=== PATIENT | male | born 1930 | race Caucasian/White ===

== ENCOUNTER 2017-08-10 05:33 | Observation (INO) | payer OTHER ==
[~2017-08-10] VITALS: Ht 175.3 cm; Wt 100.0 kg
[2017-08-10] VITALS (9 sets, daily range): BP systolic 131–194; BP diastolic 64–110; PULSE 73–86; RESP 18–20; TEMP 98.4–98.7; O2SAT 92–97
[~2017-08-10 05:33] MED LIST: BACT800T5 PO; DOXA1TAB36 PO; FAMO20TA2 PO; HYDR25TA5 PO; MULT1TAB85 PO; VITA10002 PO; VITA2000 PO; WARF-23 PO
[2017-08-10] MEDS ORDERED: CETI10 (05:51)
[2017-08-10] MEDS ORDERED: ONETAB22 PO (05:51)
--- NOTE | 2017-08-10 06:50 | RADRPT ---
EXAM DATE: 08/10/2017 6:36 AM EDT AGE/SEX: 87 years / Male INDICATIONS: Inflammation. CLINICAL DATA: This is the patient's initial encounter. Patient reports that signs and symptoms have been present for 1 day and indicates a pain score of 2/10. MEDICAL/SURGICAL HISTORY: Aneurysm, abdominal. Aortic valve insufficiency. . Right ankle. COMPARISON: No prior exams available for comparison. FINDINGS: AP, lateral and oblique views of the right foot were obtained and demonstrate 2 lag-type screws in th e medial malleolus. Ankle mortise is widened medially there is abnormal deformity and lucency involvi ng the distal lateral tibia. The patient appears status post talocalcaneal fusion with deformity. The re is no acute fracture. There is evidence of pes planus. Diffuse soft tissue swelling. CONCLUSION: 1. Remote postsurgical changes with lag-type screws and apparent talar calcaneal fusion. 2. Widening of the medial ankle mortise with apparent osteochondral defect involving the medial dist al tibia. 3. No acute fracture. 4. Diffuse soft tissue swelling. 5. Pes planus. Electronically signed by: Roverto Toscano MD 08/10/2017 6:49 AM EDT
[2017-08-10 06:53] LABS: AUTOMATED NEUTROPHIL # 6.3 TH/MM3 (1.8-7.7); BASOPHIL % 0.4 % (0.0-2.0); EOSINOPHIL # 0.1 TH/MM3 (0-0.4); EOSINOPHIL % 1.4 % (0.0-4.0); HEMATOCRIT 38.2 % (39.0-51.0); HEMOGLOBIN 12.8 GM/DL (13.0-17.0); LYMPHOCYTE # 0.4 TH/MM3 (1.0-4.8); MEAN CELL VOLUME 94.1 FL (80.0-100.0); MEAN CORPUSCULAR HEMOGLOBIN 31.7 PG (27.0-34.0); MEAN CORPUSCULAR HGB CONC 33.7 % (32.0-36.0); MEAN PLATELET VOLUME 8.1 FL (7.0-11.0); MONOCYTE # 0.7 TH/MM3 (0-0.9); NEUT % 84.2 % (16.0-70.0); PLATELET COUNT 275 TH/MM3 (150-450); RED BLOOD COUNT 4.06 MIL/MM3 (4.50-5.90); RED CELL DISTRIBUTION WIDTH 15.4 % (11.6-17.2); WHITE BLOOD COUNT 7.5 TH/MM3 (4.0-11.0)
--- NOTE | 2017-08-10 07:01 | PD ---
HPI Chief Complaint: Skin Problem Time Seen by Provider: 05:52 Travel History International Travel<30 days: No Contact w/Intl Traveler<30days: No Traveled to known affect area: No History of Present Illness HPI This is an 87-year-old male who presents to the emergency department with 2 days of swelling involving his right lower leg, constant, moderate severity, worsening. He has been on his feet a fair amount because his children are visiting. He denies any fevers or chills. He does have a history of surgery on the right ankle 4 years ago. 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 PFSH Past Medical History Cancer: Yes (SKIN ) Hypertension: Yes Past Surgical History Appendectomy: Yes Cardiac Surgery: Yes (VALVE REPLACEMENT ) Genitourinary Surgery: Yes (TURP ) Other Surgery: Yes (POLYP REMOVED FROM NOSE , SKIN CANCER REMOVED ) Social History Alcohol Use: No Tobacco Use: No Substance Use: No Allergies-Medications (Allergen,Severity, Reaction): Coded Allergies: bacitracin (Verified Allergy, Unknown, 08/10/17) neomycin (Verified Allergy, Unknown, 08/10/17) Reported Meds & Prescriptions Reported Meds & Active Scripts Active Warfarin 5 Mg Tab 5 Mg PO DAILY Hydrochlorothiazide 25 Mg Tab 25 Mg PO DAILY Reported Cetirizine (Cetirizine HCl) 10 Mg Tab 10 Mg DAILY One Daily-Minerals (Multiple Vitamins W/ Minerals) 1 Tab 1 Tab PO DAILY Famotidine 20 Mg Tab 20 Mg PO DAILY PRN Vitamin D3 (Cholecalciferol) 2,000 Unit Cap 2,000 Units PO DAILY Vitamin B-12 (Cyanocobalamin) 1,000 Mcg Tab 1,000 Mcg PO DAILY Review of Systems Except as stated in HPI: all other systems reviewed are Neg Physical Exam Narrative GENERAL:Well appearing, no acute distress SKIN: Erythema and warmth over the distal right lower extremity adjacent to the patient's surgical scars. HEAD: Atraumatic. Normocephalic. EYES: Pupils equal and round. No injection or drainage. ENT: Moist mucous membranes NECK: Trachea midline. CARDIOVASCULAR: Regular rate and rhythm. 3 out of 6 systolic murmur appreciated over the right upper sternal border. RESPIRATORY: Clear to auscultation. Breath sounds equal bilaterally. GASTROINTESTINAL: Abdomen soft, non-tender, nondistended. MUSCULOSKELETAL: No obvious deformities. NEUROLOGICAL: Awake and alert. No obvious cranial nerve deficits. Moving all extremities. PSYCHIATRIC: Appropriate mood and affect; insight and judgment normal. Data Data Last Documented VS Vital Signs Date Time Temp Pulse Resp B/P (MAP) Pulse Ox O2 Delivery O2 Flow Rate FiO2 08/10/17 05:55 80 18 169/103 (125) 97 Room Air Orders Orders Complete Blood Count With Diff (08/10/17 06:14) Comprehensive Metabolic Panel (08/10/17 06:14) Westergren Sedimentation Rate (08/10/17 06:14) C-Reactive Protein (Crp) (08/10/17 06:14) Ankle, Complete ([id number]) (08/10/17 ) ^ Insert Iv (08/10/17 06:14) Calcium, Ionized (08/10/17 06:17) Labs Laboratory Tests Test 08/10/17 06:14 White Blood Count 7.5 TH/MM3 Red Blood Count 4.06 MIL/MM3 Hemoglobin 12.8 GM/DL Hematocrit 38.2 % Mean Corpuscular Volume 94.1 FL Mean Corpuscular Hemoglobin 31.7 PG Mean Corpuscular Hemoglobin Concent 33.7 % Red Cell Distribution Width 15.4 % Platelet Count 275 TH/MM3 Mean Platelet Volume 8.1 FL Neutrophils (%) (Auto) 84.2 % Lymphocytes (%) (Auto) 5.0 % Monocytes (%) (Auto) 9.0 % Eosinophils (%) (Auto) 1.4 % Basophils (%) (Auto) 0.4 % Neutrophils # (Auto) 6.3 TH/MM3 Lymphocytes # (Auto) 0.4 TH/MM3 Monocytes # (Auto) 0.7 TH/MM3 Eosinophils # (Auto) 0.1 TH/MM3 Basophils # (Auto) 0.0 TH/MM3 CBC Comment DIFF FINAL Differential Comment MDM Medical Decision Making Medical Screen Exam Complete: Yes Emergency Medical Condition: Yes Interpretation(s) No leukocytosis Differential Diagnosis Cellulitis, abscess, infected hardware Narrative Course This is an 87-year-old male who presents to the emergency department with cellulitis of wrist distal right lower extremity. The cellulitis is an area adjacent to prior orthopedic surgery. He was placed in a monitor and an IV was established. He is afebrile and well-appearing. Plan for labs and inflammatory markers. Based on the results of this we will decide whether the patient needs observation for orthopedic consultation or whether he can follow- up as an outpatient. 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 Melodie Arce MD Aug 10, 2017 07:01
[2017-08-10 07:08] LABS: ALT (GPT) 34 U/L (12-78); AST (GOT) 36 U/L (15-37); BICARBONATE 27.2 MEQ/L (21.0-32.0); BLOOD UREA NITROGEN 17 MG/DL (7-18); C-REACTIVE PROTEIN 0.38 MG/DL (0.00-0.30); CHLORIDE 107 MEQ/L (98-107); CREATININE 0.93 MG/DL (0.60-1.30); GLOMERULAR FILTRATION RATE 77 ML/MIN (>89); GLUCOSE,RANDOM 81 MG/DL (74-106); SODIUM (NA) 140 MEQ/L (136-145)
[2017-08-10 07:11] LABS: ALKALINE PHOSPHATASE 89 U/L (45-117); TOTAL BILIRUBIN ADULT 1.4 MG/DL (0.2-1.0)
[2017-08-10] MEDS ORDERED: PIPERACIL-TAZO 4.5 GM PREMIX 100 ML IV STA (09:22)
--- NOTE | 2017-08-10 10:23 | HHI.HP ---
[facility] Service Family Medicine Primary Care Physician Barron Sandoval MD Admission Diagnosis Leg cellulitis Diagnoses: International Travel<30 Days: No Contact w/Intl Traveler<30days: No Known Affected Area: No History of Present Illness Dr. 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 He states that 2 days ago he states that there were "a couple of 2 inch spots or redness that quickly increased to surround his leg." Over the last 2 days the ankle has gotten more edematous, erythematous, and started to have pain. Pain is a sharp pain that is up to 4/10 that is diffuse around his ankle. His only other associated symptom over this time is some mild nausea. He denies any drainage, trauma, bleeding, fevers/chills, V/D, or lethargy. He does endorse being on his feet more than normal due to a recent visit from his grandchildren. He endorses a history of reflex sympathetic dystropy that causes him 2+ nonpitting edema, stiffness, and intermittent pain. (Julio Cesar Emmanuel MD R2) Review of Systems Constitutional: COMPLAINS OF: Dizziness, DENIES: Fever, Chills Eyes: DENIES: Blurred vision, Double Vision Ears, nose, mouth, throat: COMPLAINS OF: Hearing loss (Since radiation treatment years ago in his R ear), DENIES: Throat pain, Running Nose Respiratory: COMPLAINS OF: Cough (Since radiation treatment years ago), Sputum production (Since radiation treatment years ago), DENIES: Shortness of breath Cardiovascular: COMPLAINS OF: Lower Extremity Edema, DENIES: Chest pain Gastrointestinal: COMPLAINS OF: Nausea, DENIES: Abdominal pain, Diarrhea, Vomiting Genitourinary: DENIES: Hematuria, Dysuria Musculoskeletal: COMPLAINS OF: Joint pain, Muscle aches Integumentary: DENIES: Rash Hematologic/lymphatic: COMPLAINS OF: Lymphadenopathy Immunologic/allergic: DENIES: Urticaria Neurologic: DENIES: Headache Psychiatric: DENIES: Mood changes (Julio Cesar Emmanuel MD R2) Past Family Social History Past Medical History Hypertension Abdominal aortic aneurysm last seen early 2017, recheck scheduled in late 2018 (currently 6.0cm, patient declining surgery) 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 Diaz, Cardiology: Dr. Wood. Past Surgical History Nasal polypectomy 2001 TURP in 2003. Patient reports a continued mild post void residual of 100 mL. 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 Right ankle fracture requiring open reduction internal fixation in 2013; complicated by post injury reflex sympathetic dystrophy (Julio Cesar Emmanuel MD R2) Allergies: Coded Allergies: bacitracin (Verified Allergy, Unknown, 08/10/17) neomycin (Verified Allergy, Unknown, 08/10/17) Family History Father: at age 48 of a gunshot accident. 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 HEENT: Atraumatic, normocephalic with extraocular motions intact. PERRLA. Oropharynx clear without erythema or exudate. No rhinorrhea. No palpable LAD, JVD, or thyroid abnormality. Surgical wounds on the scalp as well as ear. CARDIOVASCULAR: Irregular rate and rhythm without obvious MGR. 2+ pulses in all 4 extremities. RESPIRATORY: Clear to auscultation bilaterally with no CRW. No increased work of breathing. GASTROINTESTINAL: Abdomen soft, non-tender, nondistended with positive bowel sounds. No masses appreciated. MUSCULOSKELETAL: No cyanosis. No left calf tenderness. RLE: Patient with loss of sensation along the right toes which is baseline per his report. Otherwise sensation, range of motion, and strength intact throughout the right lower extremity. DP/PT pulses unable to be palpated due to edema. 2+ popliteal pulse palpated. No lymphadenopathy appreciated throughout the right lower extremity. NEURO/PSYCH: Afocal. Awake, alert, and oriented x3. Normal speech and judgement. SKIN: Warm and dry. -Right lower extremity Measurements: 38 x 26 cm area of hyperemic skin surrounding the right ankle and lower calf. Boarders have been outlined with marking pen. Edematous, erythematous, warm to the touch Not well demarcated (no obvious boundaries like erysipelas) Indurated without fluctuance or crepitus Skin is tight/cracked appearing with one small healing eschar on the anterior singer. No exudates. No foul smell. No necrotic appearing tissue. No skin sloughing. No ulcers. Sensation in overlying skin intact. No loss of motor function distally. Pulses unable to be palpated at the PT and DP due to edema of the right lower extremity. No palpable popliteal or inguinal lymph nodes appreciated. Laboratory Laboratory Tests Test 08/10/17 06:14 White Blood Count 7.5 Red Blood Count 4.06 Hemoglobin 12.8 Hematocrit 38.2 Mean Corpuscular Volume 94.1 Mean Corpuscular Hemoglobin 31.7 Mean Corpuscular Hemoglobin Concent 33.7 Red Cell Distribution Width 15.4 Platelet Count 275 Mean Platelet Volume 8.1 Neutrophils (%) (Auto) 84.2 Lymphocytes (%) (Auto) 5.0 Monocytes (%) (Auto) 9.0 Eosinophils (%) (Auto) 1.4 Basophils (%) (Auto) 0.4 Neutrophils # (Auto) 6.3 Lymphocytes # (Auto) 0.4 Monocytes # (Auto) 0.7 Eosinophils # (Auto) 0.1 Basophils # (Auto) 0.0 CBC Comment DIFF FINAL Differential Comment Erythrocyte Sedimentation Rate 24 Blood Urea Nitrogen 17 Creatinine 0.93 Random Glucose 81 Total Protein 7.0 Albumin 4.0 Calcium Level 9.0 Alkaline Phosphatase 89 Aspartate Amino Transf (AST/SGOT) 36 Alanine Aminotransferase (ALT/SGPT) 34 Total Bilirubin 1.4 Sodium Level 140 Potassium Level 4.1 Chloride Level 107 Carbon Dioxide Level 27.2 Anion Gap 6 Estimat Glomerular Filtration Rate 77 C-Reactive Protein 0.38 Date/Time Source Procedure Growth Status 08/10/17 09:30 Blood Peripheral Aerobic Blood Culture Pending Received 08/10/17 09:30 Blood Peripheral Anaerobic Blood Culture Pending Received (Julio Cesar Emmanuel MD R2) Result Diagram: 08/10/17 0614 08/10/17 0614 Imaging Last 72 hours Impressions Ankle X-Ray 08/10/17 0000 Signed Impressions: CONCLUSION: 1. Remote postsurgical changes with lag-type screws and apparent talar calcane al fusion. 2. Widening of the medial ankle mortise with apparent osteochondral defect inv olving the medial distal tibia. 3. No acute fracture. 4. Diffuse soft tissue swelling. 5. Pes planus. (Julio Cesar Emmanuel MD R2) Caprini VTE Risk Assessment Caprini VTE Risk Assessment: Mod/High Risk (score >= 2) Caprini Risk Assessment Model Point Value = 1 Point Value = 2 Point Value = 3 Point Value = 5 Age 41-60 Minor surgery BMI > 25 kg/m2 Swollen legs Varicose veins or History of unexplained or recurrent spontaneous Oral contraceptives or hormone replacement Sepsis (< 1 month) Serious lung disease, including pneumonia (< 1 month) Abnormal pulmonary function Acute myocardial infarction Congestive heart failure (< 1 month) History of inflammatory bowel disease Medical patient at bed rest Age 61-74 Arthroscopic surgery Major open surgery (> 45 min) Laparoscopic surgery (> 45 min) Malignancy Confined to bed (> 72 hours) Immobilizing plaster cast Central venous access Age >= 75 History of VTE Family history of VTE Factor V Leiden Prothrombin [id number] Lupus anticoagulant Anticardiolipin antibodies Elevated serum homocysteine Heparin-induced thrombocytopenia Other congenital or acquired thrombophilia Stroke (< 1 month) Elective arthroplasty Hip, pelvis, or leg fracture Acute spinal cord injury (< 1 month) Prophylaxis Regimen Total Risk Factor Score Risk Level Prophylaxis Regimen 0-1 Low Early ambulation 2 Moderate Order ONE of the following: *Sequential Compression Device (SCD) *Heparin 5000 units SQ BID 3-4 Higher Order ONE of the following medications: *Heparin 5000 units SQ TID *Enoxaparin/Lovenox 40 mg SQ daily (WT < 150 kg, CrCl > 30 mL/min) *Enoxaparin/Lovenox 30 mg SQ daily (WT < 150 kg, CrCl > 10-29 mL/min) *Enoxaparin/Lovenox 30 mg SQ BID (WT < 150 kg, CrCl > 30 mL/min) AND/OR *Sequential Compression Device (SCD) 5 or more Highest Order ONE of the following medications: *Heparin 5000 units SQ TID (Preferred with Epidurals) *Enoxaparin/Lovenox 40 mg SQ daily (WT < 150 kg, CrCl > 30 mL/min) *Enoxaparin/Lovenox 30 mg SQ daily (WT < 150 kg, CrCl > 10-29 mL/min) *Enoxaparin/Lovenox 30 mg SQ BID (WT < 150 kg, CrCl > 30 mL/min) AND *Sequential Compression Device (SCD) (Julio Cesar Emmanuel MD R2) Assessment and Plan Assessment and Plan 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 Code Status DNR - Documentation per patient is at [facility] Discussed Condition With Dr. Samayoa, ED physician (Julio Cesar Emmanuel MD R2) Attending Attestation PATIENT SEEN AND EXAMINED. PRESENTS WITH CELLULITIS OF HIS RIGHT LOWER EXTREMITY; AREA WHERE HE HAS CHRONIC STASIS EDEMA. NOTES THAT HE BEGAN FEELING BADLY ABOUT 48 HOURS AGA AND NOTED THE ONCET OF THE REDNESS/CELLULITIS YESTERDAY. NO PREVIOUS SIMILAR EPISODE. UNCERTAIN IF HE HAD CHILLS OR FEVER. PREVIOUS FX OF HIS RIGHT ANKLE WITH DEPENDENT EDEMA CHRONICALLY SINCE INJURY. HE HAS ATRIAL FIBRILLATION FOR WHICH HE IN ON WARFARIN. ALSO HAS A KNOWN AAA FOLLOWED BY DR. DIAZ. THIS CASE WAS DISCUSSED WITH THE RESIDENT PHYSICIAN. I HAVE REVIEWED THE RECORD AND AGREE WITH THE ABOVE NOTE AND PLAN OF CARE WAS DISCUSSED. I HAVE AUTHORIZED THE ORDER FOR PLACEMENT IN OUT-PATIENT OBSERVATION STATUS. (Barron Sandoval MD) Problem List: (1) Cellulitis of right lower extremity ICD Codes: L03.115 - Cellulitis of right lower limb Status: Acute Plan: Physical exam consistent with nonpurulent cellulitis as there is no drainage or pus. Thus, MSSA and strep are most likely. MRSA unlikely. However with orthopedic devices in the right lower extremity, per up-to-date will cover for MRSA infection with vancomycin. -Patient currently does not meet sepsis criteria as there is no leukocytosis, patient is afebrile, no tachycardia, and is without respiratory distress. - R Ankle Xray:1. Remote postsurgical changes with lag-type screws and apparent talar calcaneal fusion. Widening of the medial ankle mortise with apparent osteochondral defect involving the medial distal tibia. No acute fracture. Diffuse soft tissue swelling. Pes planus. -WBC 7.5, neutrophil percent 84.2. Afebrile. -ESR 24 -CRP 0.38 -Patient hypertensive (missed his morning HCTZ) and pt. not tachycardic. -Wound cultures ordered if area begins to drain. -Vancomycin with pharmacy consulted for dosing. -Pain control with Toradol 15mg every 6 hours IV to aid in inflammation reduction and Oxycodone 5 mg PO Q4H PRN for breakthrough pain. -Consider ID/Orthopedic consult in the near future if pt. does not ct. to improve. -Elevate affected area. K thermia pad ordered. -Expect cellulitis to worsen in the first 24 hrs after abx due to toxin release and bacterial lysis. (2) AAA (abdominal aortic aneurysm) ICD Codes: I71.4 - Abdominal aortic aneurysm, without rupture Status: Chronic Plan: Patient with history of AAA measuring up to 6 cm per patient report. Patient has declined surgery in the past is currently managed as an outpatient by Dr. Diaz. He states that he had an appointment for evaluation earlier this year, and is rescheduled for his next appointment this fall. Due to aneurysm, plan to have tight blood pressure control. Medications: -Continue home hydrochlorothiazide -Carvedilol 3.125 mg twice daily as needed for blood pressure greater than 130/ 90 -Plan to adjust blood pressure medications as needed to control blood pressure (3) Constipation ICD Codes: K59.00 - Constipation, unspecified Status: Acute Plan: Patient reports constipation for the last 24+ hours with mild nausea. Patient states he uses [id number] laxative/fiber to assist with constipation at home as it is long-standing. Medications: -Constipation protocol in place (4) Hypertension ICD Codes: I10 - Essential (primary) hypertension Status: Chronic Plan: Patient with history of hypertension. Patient reports missing home hydrochlorothiazide morning dose on 08/10 at admission. Medications: -Continue home hydrochlorothiazide (5) GERD (gastroesophageal reflux disease) ICD Codes: K21.9 - Gastro-esophageal reflux disease without esophagitis Status: Chronic Plan: Patient with history of GERD Medications: -Continue home famotidine as needed for indigestion (6) Atrial fibrillation ICD Codes: I48.91 - Unspecified atrial fibrillation Status: Chronic Plan: Patient with history of atrial fibrillation currently anticoagulated with Coumadin. Patient reports currently not requiring rate control. He is managed by Dr. Wood. -PT/INR/PTT: Ordered Medications: -Continue Coumadin 5 mg daily (7) BPH (benign prostatic hyperplasia) ICD Codes: N40.0 - Benign prostatic hyperplasia without lower urinary tract symptoms Status: Chronic Plan: Patient with history of BPH Medications: -Continue home Doxazosin (8) Nutrition, metabolism, and development symptoms ICD Codes: R63.8 - Other symptoms and signs concerning food and fluid intake Status: Acute Plan: -Fluids: Normal saline at 100 mL/h -Diet: Regular as tolerated -Electrolytes: Within normal limits, continue to monitor -Prophylaxis: Cetirizine daily for allergies, constipation protocol in place, DuoNeb's as needed for shortness of breath, famotidine as needed for indigestion , Tessalon Perles as needed for cough, Toradol scheduled for pain with [place] as needed for breakthrough pain -PT ordered -Incentive spirometry (9) DVT prophylaxis Status: Acute Plan: -SCDs Medications: -Continue anticoagulations with Coumadin (Julio Cesar Emmanuel MD R2) Problem Qualifiers (1) AAA (abdominal aortic aneurysm): Qualified Codes: I71.4 - Abdominal aortic aneurysm, without rupture (2) Constipation: Qualified Codes: K59.00 - Constipation, unspecified (3) Hypertension: Qualified Codes: I10 - Essential (primary) hypertension (4) GERD (gastroesophageal reflux disease): Qualified Codes: K21.9 - Gastro-esophageal reflux disease without esophagitis (5) Atrial fibrillation: Qualified Codes: I48.2 - Chronic atrial fibrillation (6) BPH (benign prostatic hyperplasia): Qualified Codes: N40.0 - Benign prostatic hyperplasia without lower urinary tract symptoms Julio Cesar Emmanuel MD R2 Aug 10, 2017 10:23 Barron Sandoval MD Aug 10, 2017 18:23
[2017-08-10] MEDS ORDERED: FAMOTIDINE 20 MG TAB PO PRN (10:45)
[2017-08-10] MEDS ORDERED: ACETAMINOPHEN 500 MG CPLT PO PRN (11:15)
[2017-08-10] MEDS ORDERED: Vancomycin Consult Pharmacy 1 EA OTHER SCH (11:15)
[2017-08-10] MEDS ORDERED: ACETAMINOPHEN/HYDROcodone 325 MG/5 MG TAB PO PRN (11:15)
[2017-08-10] MEDS ORDERED: SODIUM CHLORIDE 0.9% FLUSH 10 ML FLUSH IV FLUSH PRN (11:15)
[2017-08-10] MEDS ORDERED: VANCOMYCIN INJ 1,000 MG in SODIUM CHLOR 0.9% 250 ML INJ 250 ML IV SCH (11:15)
[2017-08-10] MEDS ORDERED: MAGNESIUM HYDROXIDE SUSP 30 ML CUP PO PRN (11:30)
[2017-08-10] MEDS ORDERED: SENNOSIDES 8.6 MG TAB PO PRN (11:30)
[2017-08-10] MEDS ORDERED: BENZONATATE 100 MG CAP PO PRN (11:30)
[2017-08-10] MEDS ORDERED: RESP: ALBUTEROL 2.5 MG/IPRATROPIUM 0.5 MG NEB (PRN) NEB (11:30)
[2017-08-10] MEDS ORDERED: CARVEDILOL 3.125 MG TAB PO PRN (11:30)
[2017-08-10] MEDS ORDERED: BISACODYL 10 MG SUPP RECTAL PRN (11:30)
[2017-08-10] MEDS ORDERED: cloNIDine HCL 0.1 MG TAB PO PRN (12:45)
[2017-08-10] MEDS: HYDROCHLOROTHIAZIDE 25 MG TAB PO SCH (12:57)
[2017-08-10] MEDS: KETOROLAC TROMETHAMINE 30 MG/ML (IVP) VIAL IV PUSH SCH ×2 (12:57→18:22)
[2017-08-10] MEDS: DOCUSATE SODIUM 50 MG/SENNA 8.6 MG TAB PO SCH ×2 (13:11→22:29)
[2017-08-10] MEDS: SODIUM CHLOR 0.9% 1000 ML INJ 1,000 ML IV SCH (14:08)
[2017-08-10] MEDS: VANCOMYCIN INJ 1,500 MG in SODIUM CHLORID 0.9% 500 ML INJ 500 ML IV SCH (14:10)
[2017-08-10] MEDS: DOXAZOSIN MESYLATE 1 MG TAB PO SCH (14:13)
[2017-08-10 16:36] LABS: INTERNATIONAL NORMALIZED RATIO 1.7 RATIO; PROTHROMBIN TIME - PATIENT 17.5 SEC (9.8-11.6)
--- NOTE | 2017-08-10 16:41 | HHI.PR ---
Addendum to Inpatient Note Addendum Reason: Additional Documentation Additional Information Called to bedside because patient had questions about code status. On discussion , patient does not want interventions including codes ONLY IF AORTA RUPTURES. Otherwise, he wants CPR, shocks, meds, and intubation if needed on immediate basis. Once known etiology is aortic rupture, he would want acute interventions stopped. Updated code status in chart to full code, reminded patient to let nurse know at any point if he decides he would rather be DNR or alternate code. Justen San MD R2 Aug 10, 2017 4:41 pm
--- NOTE | 2017-08-10 19:02 | HHI.PR ---
Addendum to Inpatient Note Addendum Reason: Additional Documentation Additional Information S: Medical team senior solutions architect alerted by nursing staff of possible mental status change. Per the report patient appeared "loopy" and was not oriented to place or time per her report. Nursing staff performed NIH stroke scale scored as a 2 ( 1 for drowsiness and 1 for correct orientation questions). Medical team to evaluate patient. Upon entering the room patient is eating dinner and watching television in no acute distress. Patient states that he believes the nursing staff "got into fuss" after waking him up from a "deep sleep." He agreed that he might have seemed "out of it" but believes he is "out of his fog." O: GENERAL: Well-nourished, well-developed patient. No acute distress. SKIN: Warm and dry. No rash. EYES: No scleral icterus. No injection or drainage. PERRLA. EOMI. HENT: Normocephalic. Atraumatic. MMM. NECK: No visible JVD or lymphadenopathy. CARDIOVASCULAR: Warm and well perfused. RESPIRATORY: Normal respiratory effort. GASTROINTESTINAL: Abdomen nondistended. MUSCULOSKELETAL: Strength grossly WNL. NEUROLOGICAL: AAO 3. Speech- Fluent. No dysarthria or dysphasia. Good focus, attention, and comprehension. Cranial nerves- 2 through 12 intact. Motor/sensory/reflexes- Face- No facial droop. No tongue deviation. RUE- 5/5 strength in all musc groups, sensation intact. Reflexes 2+. LUE- 5/5 strength in all musc groups, sensation intact. Reflexes 2+. RLE- 5/5 strength in all musc groups, sensation intact. Reflexes 2+. LLE- 5/5 strength in all musc groups, sensation intact. Reflexes 2+. Pronator drift test-negative Babinski-negative Rapid alternating movements-negative No hemispace neglect. Able to repeat phrases: 3/3 Shot term memory intact. Able to perform heel to singer. 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 Medical team called to evaluate for possible AMS. 1. Possible AMS -Neuro exam unchanged as above -Patient completely oriented 3 -Neuro checks ordered every 4 hours -Nursing staff to contact MD with any acute status changes at this time -Continue with medical plan Julio Cesar Emmanuel MD R2 Aug 10, 2017 19:02
[2017-08-10] MEDS ORDERED: WARFARIN SOD 5 MG TAB PO SCH (21:00)
[2017-08-10] MEDS: SODIUM CHLORIDE 0.9% FLUSH 10 ML FLUSH IV FLUSH SCH (21:00)
[2017-08-11] MEDS: SODIUM CHLOR 0.9% 1000 ML INJ 1,000 ML IV SCH ×2 (00:26→07:56)
[2017-08-11] MEDS: KETOROLAC TROMETHAMINE 30 MG/ML (IVP) VIAL IV PUSH SCH ×3 (00:26→11:56)
[2017-08-11 00:30] VITALS: BP 120/56; PULSE 81; RESP 18; TEMP 98.5; O2SAT 93
[2017-08-11 04:35] VITALS: BP 143/78; PULSE 83; RESP 19; TEMP 97.5; O2SAT 95
[2017-08-11 07:00] VITALS: BP 119/70; PULSE 58; RESP 17; TEMP 97.8; O2SAT 94
[2017-08-11 07:37] VITALS: O2SAT 94
[2017-08-11] MEDS: DOCUSATE SODIUM 50 MG/SENNA 8.6 MG TAB PO SCH (07:55)
[2017-08-11] MEDS: HYDROCHLOROTHIAZIDE 25 MG TAB PO SCH (07:56)
[2017-08-11] MEDS: SODIUM CHLORIDE 0.9% FLUSH 10 ML FLUSH IV FLUSH SCH (07:56)
[2017-08-11] MEDS: DOXAZOSIN MESYLATE 1 MG TAB PO SCH (07:59)
[2017-08-11 08:20] LABS: AUTOMATED NEUTROPHIL # 8.3 TH/MM3 (1.8-7.7); BASOPHIL # 0.1 TH/MM3 (0-0.2); BASOPHIL % 0.5 % (0.0-2.0); EOSINOPHIL % 0.4 % (0.0-4.0); HEMATOCRIT 36.7 % (39.0-51.0); HEMOGLOBIN 12.4 GM/DL (13.0-17.0); LYMPH % 4.3 % (9.0-44.0); LYMPHOCYTE # 0.4 TH/MM3 (1.0-4.8); MEAN CELL VOLUME 94.7 FL (80.0-100.0); MEAN CORPUSCULAR HEMOGLOBIN 32.1 PG (27.0-34.0); MEAN CORPUSCULAR HGB CONC 33.8 % (32.0-36.0); MEAN PLATELET VOLUME 8.4 FL (7.0-11.0); MONO % 10.4 % (0.0-8.0); NEUT % 84.4 % (16.0-70.0); PLATELET COUNT 255 TH/MM3 (150-450); RED BLOOD COUNT 3.87 MIL/MM3 (4.50-5.90); RED CELL DISTRIBUTION WIDTH 15.2 % (11.6-17.2); WHITE BLOOD COUNT 9.8 TH/MM3 (4.0-11.0)
[2017-08-11 08:50] LABS: BICARBONATE 23.8 MEQ/L (21.0-32.0); CALCIUM 8.8 MG/DL (8.5-10.1)
[2017-08-11] MEDS ORDERED: CHOLECALCIFEROL (VIT D3) 1000 UNIT TAB PO SCH (09:00)
[2017-08-11] MEDS ORDERED: CYANOCOBALAMIN 1,000 MCG TAB PO SCH (09:00)
[2017-08-11] MEDS ORDERED: MULTIVITAMINS/MINERALS THERAPEUTIC TAB PO SCH (09:00)
[2017-08-11] MEDS ORDERED: CETIRIZINE HCL 10 MG TAB PO SCH (09:00)
[2017-08-11 10:41] VITALS: BP 109/63; PULSE 66; RESP 18; TEMP 97.6; O2SAT 66
[2017-08-11] MEDS ORDERED: TAMS5CAP PO (13:24)
[2017-08-11] MEDS ORDERED: CEPH-460 PO (13:24)
[2017-08-11] MEDS ORDERED: CARV3.12 PO (13:24)
--- NOTE | 2017-08-11 13:25 | HHI.DCPOC ---
Discharge Care Plan Diagnosis: (1) Cellulitis of right lower extremity Goals to Promote Your Health * To prevent worsening of your condition and complications * To maintain your health at the optimal level Directions to Meet Your Goals Take your medications as prescribed Follow your dietary instruction Follow activity as directed Keep your appointments as scheduled Take your immunizations and boosters as scheduled If your symptoms worsen call your PCP, if no PCP go to Urgent Care Center or Emergency Room Smoking is Dangerous to Your Health. Avoid second hand smoke Call the 24-hour hour crisis hotline for domestic abuse at Betsy Cobos MD R1 Aug 11, 2017 13:25
[2017-08-11] MEDS: VANCOMYCIN INJ 1,500 MG in SODIUM CHLORID 0.9% 500 ML INJ 500 ML IV SCH (13:28)
--- NOTE | 2017-08-11 13:45 | HHI.FPPN ---
Subjective Remarks Vitals stable. No problems or complaints. Patient states that he is feeling good today, ready to go home. (Betsy Cobos MD R1) Objective Vitals Vital Signs Date Time Temp Pulse Resp B/P (MAP) Pulse Ox O2 Delivery O2 Flow Rate FiO2 08/11/17 10:41 97.6 66 18 109/63 (78) 66 08/11/17 07:37 94 21 08/11/17 07:00 97.8 58 17 119/70 (86) 94 08/11/17 04:35 97.5 83 19 143/78 (99) 95 08/11/17 01:26 18 08/11/17 00:30 98.5 81 18 120/56 (77) 93 08/10/17 20:38 98.7 73 19 131/64 (86) 92 08/10/17 19:25 93 08/10/17 17:00 98.7 82 18 148/80 (102) 94 08/10/17 13:59 96 21 08/10/17 13:55 98.4 86 20 163/97 (119) 96 I/O 08/10/17 08/10/17 08/10/17 08/11/17 08/11/17 08/11/17 07:00 15:00 23:00 07:00 15:00 23:00 Intake Total 100 ml 2640 ml Output Total 800 ml Balance 100 ml 1840 ml Intake Oral 440 ml IV Total 100 ml 2200 ml Output Urine Total 800 ml # Voids 3 (Betsy Cobos MD R1) Result Diagram: 08/11/17 0723 08/11/17 0723 Objective Remarks O. CONSTITUTIONAL/GEN: in NAD. EYES: conjunctiva normal, PERRLA, EOMI. ENT: Mouth and pharynx normal. LUNGS: clear A-P, respiratory effort is normal. CARDIOVASCULAR: RR without murmur or gallop. No significant edema. GI/ABD: soft without masses, without organomegaly. NEURO: No focal deficits. SKIN: Negative demarcation at the right lower extremity that previously circumscribed area of redness/cellulitis. Area of redness has decreased in size. Leg is still swollen, but not too much swollen more swollen than the other leg. No pain/tenderness. +Pitting edema with some warmth. HEME/LYMPH: no bruising, petechia or significant adenopathy MUSC: back is normal in appearance. Extremities are normal in appearance. PSYCH/MENTAL STATUS: Alert and oriented x 3. 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 Improvement noted with antibiotic treatment. Discharge Planning Patient states that he feels much better today. Plan is to go home after dose of Vanco at 1400. Will continue antibiotic treatment with p.o. antibiotics outpatient. Will stop Cardura, initiate Flomax, and carvedilol twice daily. (Betsy Cobos MD R1) Attending Attestation Patient seen and examined. Non-purulent cellulitis of RLE is improving. B/p improved with carvedilol and no significant bradycardia. Beta bhupinder therapy for hypertension would be preferred in view of AAA. Does get benefit from alpha bhupinder regarding BPH. Will stop Cardura and substitute Flomax with continuation of carvedilol for HTN. Case reviewed and discussed with the resident team. Agree with plan of care as discussed with me and documented in the resident note. (Barron Sandoval MD) Problem List: (1) Cellulitis of right lower extremity ICD Codes: L03.115 - Cellulitis of right lower limb Status: Acute Plan: Improved. Discharge today after second dose of Vanco. Keflex 500 4 times daily for 7 days If infection worsens at any point, may start Bactrim. (2) AAA (abdominal aortic aneurysm) ICD Codes: I71.4 - Abdominal aortic aneurysm, without rupture Status: Chronic Plan: Patient with history of AAA measuring up to 6 cm per patient report. Patient has declined surgery in the past is currently managed as an outpatient by Dr. Peraza. He states that he had an appointment for evaluation earlier this year, and is rescheduled for his next appointment this fall. Due to aneurysm, plan to have tight blood pressure control. Medications: Stop Cardura. Initiate Flomax 0.4 mg at bedtime. Carvedilol 3.125 mg twice daily (3) Hypertension ICD Codes: I10 - Essential (primary) hypertension Status: Chronic Plan: Continue hydrochlorothiazide. Start carvedilol 3.125 mg p.o. twice daily for blood pressure control. (4) Constipation ICD Codes: K59.00 - Constipation, unspecified Status: Acute Plan: Continue home treatment regimen (5) GERD (gastroesophageal reflux disease) ICD Codes: K21.9 - Gastro-esophageal reflux disease without esophagitis Status: Chronic Plan: Patient with history of GERD Medications: -Continue home famotidine as needed for indigestion (6) Atrial fibrillation ICD Codes: I48.91 - Unspecified atrial fibrillation Status: Chronic Plan: Patient with history of atrial fibrillation currently anticoagulated with Coumadin. Patient reports currently not requiring rate control. He is managed by Dr. Wood. Medications: -Continue Coumadin 5 mg daily (7) BPH (benign prostatic hyperplasia) ICD Codes: N40.0 - Benign prostatic hyperplasia without lower urinary tract symptoms Status: Chronic Plan: Patient with history of BPH Medications: Discontinue doxazosin. Start Flomax 0.4 mg at bedtime (Betsy Cobos MD R1) Problem Qualifiers (1) AAA (abdominal aortic aneurysm): Qualified Codes: I71.4 - Abdominal aortic aneurysm, without rupture (2) Hypertension: Qualified Codes: I10 - Essential (primary) hypertension (3) Constipation: Qualified Codes: K59.00 - Constipation, unspecified (4) GERD (gastroesophageal reflux disease): Qualified Codes: K21.9 - Gastro-esophageal reflux disease without esophagitis (5) Atrial fibrillation: Qualified Codes: I48.2 - Chronic atrial fibrillation (6) BPH (benign prostatic hyperplasia): Qualified Codes: N40.0 - Benign prostatic hyperplasia without lower urinary tract symptoms Betsy Cobos MD R1 Aug 11, 2017 13:45 Barron Sandoval MD Aug 12, 2017 07:35
[2017-08-13] MEDS ORDERED: PHARMACY ORDERED LAB ONE (13:45)
== END 2017-08-11 14:25 | disposition home or self-care (01) ==
LOC: NEPE 05:33 → NEDA 09:48 → NEPHCDU 13:11
PROVIDERS: ADMIT Family Medicine; ATTEND Family Medicine
DX: M79.89 Other specified soft tissue disorders (principal); L03.115 Cellulitis of right lower limb; I71.4 Abdominal aortic aneurysm, without rupture; G90.50 Complex regional pain syndrome I, unspecified; Z85.828 Personal history of other malignant neoplasm of skin; I10 Essential (primary) hypertension; Z79.01 Long term (current) use of anticoagulants; Z79.899 Other long term (current) drug therapy; R11.0 Nausea; G57.93 Unspecified mononeuropathy of bilateral lower limbs; M43.16 Spondylolisthesis, lumbar region; N40.0 Benign prostatic hyperplasia without lower urinary tract symptoms; I48.2 Chronic atrial fibrillation; Z92.3 Personal history of irradiation; H91.91 Unspecified hearing loss, right ear; Z87.891 Personal history of nicotine dependence; M21.40 Flat foot [pes planus] (acquired), unspecified foot; R60.9 Edema, unspecified; K59.00 Constipation, unspecified; K21.9 Gastro-esophageal reflux disease without esophagitis
CPT/HCPCS: 73610; 80048; 80053; 82330; 82550; 85025; 85610; 85652; 85730; 86140; 87040; 94150; 96361; 96365; 96375; 96376; 99285; G0378; J1885; J2543; J3370; J7030; J7040

== ENCOUNTER 2017-08-14 05:20 | Inpatient (IN) | payer OTHER, MEDICARE ==
[~2017-08-14] VITALS: Ht 175.3 cm; Wt 106.3 kg
[~2017-08-14 05:20] MED LIST changes: -BACT800T5 PO; +CARV3.12 PO; +CEPH-460 PO; +CETI10; -DOXA1TAB36 PO; -MULT1TAB85 PO; +ONETAB22 PO; +TAMS5CAP PO
[2017-08-14 05:23] VITALS: BP 168/75; PULSE 82; RESP 18; TEMP 97.8; O2SAT 98
[2017-08-14] MEDS ORDERED: VANCOMYCIN INJ 1,000 MG in SODIUM CHLOR 0.9% 250 ML INJ 250 ML IV ONE (06:00)
--- NOTE | 2017-08-14 06:17 | PD ---
HPI Chief Complaint: Injury Time Seen by Provider: 05:33 Travel History International Travel<30 days: No Contact w/Intl Traveler<30days: No Traveled to known affect area: No History of Present Illness HPI 87-year-old male complains of increasing pain and swelling of the left ankle. Patient was admitted to [facility] August 10 and discharged August 11 with diagnosis of left leg cellulitis. Patient was given IV vancomycin while in the hospital and discharged home on Keflex 500 mg 4 times a day for 7 days. Patient states that the redness swelling on the left lower leg got better however he had increasing pain and swelling and redness around the ankle. Patient denies any fever chills. Patient denies any recent injury. Patient status post left ankle fracture status post ORIF about 8 years ago. Patient also has history of abdominal aortic aneurysm, hypertension, GERD, atrial fibrillation on Coumadin, BPH. PFSH Past Medical History Hx Anticoagulant Therapy: Yes (Coumadin) Blood Disorders: No Heart Rhythm Problems: Yes (afib 1994) Cancer: Yes (SKIN ) Cardiovascular Problems: Yes (A-fib, HTN) High Cholesterol: Yes Endocrine: No Genitourinary: Yes (TURP ) Hypertension: Yes Musculoskeletal: Yes (spinal stenosis, R ankle sx) Neurologic: No Psychiatric: No Reproductive: No Respiratory: Yes Radiation Therapy: Yes Sleep Apnea: Yes Past Surgical History Appendectomy: Yes Body Medical Devices: 3 screws R ankle Cardiac Surgery: Yes (VALVE REPLACEMENT ) Genitourinary Surgery: Yes (TURP ) Other Surgery: Yes (POLYP REMOVED FROM NOSE , SKIN CANCER REMOVED ) Social History Alcohol Use: No Tobacco Use: No Substance Use: No Allergies-Medications (Allergen,Severity, Reaction): Coded Allergies: bacitracin (Verified Allergy, Unknown, 08/10/17) neomycin (Verified Allergy, Unknown, 08/10/17) Reported Meds & Prescriptions Reported Meds & Active Scripts Active Flomax (Tamsulosin HCl) 0.4 Mg Cap 0.4 Mg PO HS Carvedilol 3.125 Mg Tab 3.125 Mg PO BID Keflex (Cephalexin) 500 Mg Cap 500 Mg PO Q6H Warfarin 5 Mg Tab 5 Mg PO DAILY Hydrochlorothiazide 25 Mg Tab 25 Mg PO DAILY Reported Cetirizine (Cetirizine HCl) 10 Mg Tab 10 Mg DAILY One Daily-Minerals (Multiple Vitamins W/ Minerals) 1 Tab 1 Tab PO DAILY Famotidine 20 Mg Tab 20 Mg PO DAILY PRN Vitamin D3 (Cholecalciferol) 2,000 Unit Cap 2,000 Units PO DAILY Vitamin B-12 (Cyanocobalamin) 1,000 Mcg Tab 1,000 Mcg PO DAILY Review of Systems General / Constitutional: No: Fever Eyes: No: Visual changes HENT: No: Headaches Cardiovascular: No: Chest Pain or Discomfort Respiratory: No: Shortness of Breath Gastrointestinal: No: Abdominal Pain Genitourinary: No: Dysuria Musculoskeletal: Positive: Edema, Pain Skin: No Rash Neurologic: No: Weakness Psychiatric: No: Depression Endocrine: No: Polydipsia Hematologic/Lymphatic: No: Easy Bruising Physical Exam Narrative GENERAL: Well-nourished, well-developed patient. SKIN: Focused skin assessment warm/dry. HEAD: Normocephalic. EYES: No scleral icterus. No injection or drainage. NECK: Supple, trachea midline. No JVD or lymphadenopathy. CARDIOVASCULAR: Regular rate and rhythm without murmurs, gallops, or rubs. RESPIRATORY: Breath sounds equal bilaterally. No accessory muscle use. GASTROINTESTINAL: Abdomen soft, non-tender, nondistended. MUSCULOSKELETAL: No cyanosis. BACK: Nontender without obvious deformity. No CVA tenderness. Patient has redness swelling tenderness of the left foot left ankle and distal aspect the left lower leg. +2 pitting edema noted. No induration. Data Data Last Documented VS Vital Signs Date Time Temp Pulse Resp B/P (MAP) Pulse Ox O2 Delivery O2 Flow Rate FiO2 08/14/17 05:23 97.8 82 18 168/75 (106) 98 Orders Orders Complete Blood Count With Diff (08/14/17 05:51) Basic Metabolic Panel (Bmp) (08/14/17 05:51) Prothrombin Time / Inr (Pt) (08/14/17 05:51) Act Partial Throm Time (Ptt) (08/14/17 05:51) C-Reactive Protein (Crp) (08/14/17 05:51) Westergren Sedimentation Rate (08/14/17 05:51) Iv Access Insert/Monitor (08/14/17 05:51) Vancomycin Inj (Vancomycin Inj) (08/14/17 06:00) Bone Scan Three Phase (08/14/17 ) Labs Laboratory Tests Test 08/14/17 05:50 White Blood Count 6.3 TH/MM3 Red Blood Count 3.89 MIL/MM3 Hemoglobin 12.2 GM/DL Hematocrit 36.3 % Mean Corpuscular Volume 93.5 FL Mean Corpuscular Hemoglobin 31.3 PG Mean Corpuscular Hemoglobin Concent 33.4 % Red Cell Distribution Width 15.3 % Platelet Count 311 TH/MM3 Mean Platelet Volume 8.6 FL Neutrophils (%) (Auto) 71.4 % Lymphocytes (%) (Auto) 7.5 % Monocytes (%) (Auto) 17.1 % Eosinophils (%) (Auto) 3.0 % Basophils (%) (Auto) 1.0 % Neutrophils # (Auto) 4.5 TH/MM3 Lymphocytes # (Auto) 0.5 TH/MM3 Monocytes # (Auto) 1.1 TH/MM3 Eosinophils # (Auto) 0.2 TH/MM3 Basophils # (Auto) 0.1 TH/MM3 CBC Comment DIFF FINAL Differential Comment Blood Urea Nitrogen 25 MG/DL Creatinine 0.99 MG/DL Random Glucose 119 MG/DL Calcium Level 8.5 MG/DL Sodium Level 140 MEQ/L Potassium Level 3.7 MEQ/L Chloride Level 104 MEQ/L Carbon Dioxide Level 26.4 MEQ/L Anion Gap 10 MEQ/L Estimat Glomerular Filtration Rate 72 ML/MIN C-Reactive Protein 6.90 MG/DL [facility] Medical Decision Making Medical Screen Exam Complete: Yes Emergency Medical Condition: Yes Interpretation(s) 6:45 PM. CBC WBC 6.3. Hemoglobin 12.2 hematocrit 36.3. 71 neutrophil. BUN 25. Creatinine 0.99. GFR 72. C-reactive protein 6.9. Differential Diagnosis Differential diagnosis including cellulitis, osteomyelitis, failure outpatient treatment. Narrative Course 87-year-old male with increased redness swelling tenderness left ankle after the discharge from the hospital with diagnosis of left leg cellulitis. Patient is on Keflex p.o. Vancomycin 1 g IV given. Demar Devine MD Aug 14, 2017 06:17
[2017-08-14 06:20] LABS: AUTOMATED NEUTROPHIL # 4.5 TH/MM3 (1.8-7.7); BASOPHIL # 0.1 TH/MM3 (0-0.2); EOSINOPHIL # 0.2 TH/MM3 (0-0.4); HEMATOCRIT 36.3 % (39.0-51.0); HEMOGLOBIN 12.2 GM/DL (13.0-17.0); LYMPH % 7.5 % (9.0-44.0); LYMPHOCYTE # 0.5 TH/MM3 (1.0-4.8); MEAN CELL VOLUME 93.5 FL (80.0-100.0); MEAN CORPUSCULAR HEMOGLOBIN 31.3 PG (27.0-34.0); MEAN CORPUSCULAR HGB CONC 33.4 % (32.0-36.0); MEAN PLATELET VOLUME 8.6 FL (7.0-11.0); MONO % 17.1 % (0.0-8.0); MONOCYTE # 1.1 TH/MM3 (0-0.9); NEUT % 71.4 % (16.0-70.0); PLATELET COUNT 311 TH/MM3 (150-450); RED BLOOD COUNT 3.89 MIL/MM3 (4.50-5.90); RED CELL DISTRIBUTION WIDTH 15.3 % (11.6-17.2); WHITE BLOOD COUNT 6.3 TH/MM3 (4.0-11.0)
[2017-08-14 06:29] LABS: INTERNATIONAL NORMALIZED RATIO 2.3 RATIO; PROTHROMBIN TIME - PATIENT 23.6 SEC (9.8-11.6)
[2017-08-14 06:37] LABS: BICARBONATE 26.4 MEQ/L (21.0-32.0); C-REACTIVE PROTEIN 6.9 MG/DL (0.00-0.30); CALCIUM 8.5 MG/DL (8.5-10.1); CREATININE 0.99 MG/DL (0.60-1.30)
--- NOTE | 2017-08-14 07:12 | HHI.HP ---
HPI Service Family Medicine Team Primary Care Physician Barron Sandoval MD Admission Diagnosis Left ankle osteomyelitis Diagnoses: International Travel<30 Days: No Contact w/Intl Traveler<30days: No History of Present Illness Patient is an 87 year old male with history of atrial fibrillation, HTN, AAA, and reflex sympathetic dystrophy who presents after recent hospital stay for worsening RLE after diagnosis of cellulitis on 08/11. He had ORIF with screw with revision (currently still has screws in R medial malleolus) placed " several years ago". He has had redness in the RLE about 7 days ago and edema began to worsen on 08/10. He was admitted on 08/11 with vancomycin while inpatient , then discharged on Keflex. He is noted to have an unremarkable ankle x-ray during last hospitalization. He does endorse that RLE had improved prior to discharge in regard to swelling and erythema. Since going home, he notes that the RLE did not improve and has worsened in regard to edema and erythema last night (08/13). He decided to come in due to concern that it could be osteomyelitis and slight worsening of pain in the area of the medial malleolus, He notes he has not ambulated on the extremity much since being at home but is on Coumadin - walked to bathroom and back at home only. Ambulation causes more pain in the ankle joint than before so ambulation has been limited. No fever, chills, nausea, vomiting, bruising. In the ED, patient has received one dose of vancomycin and bone scan has been ordered. (Alana Lamar MD R2) Review of Systems Constitutional: DENIES: Fever, Chills, Dizziness, Change in appetite Endocrine: DENIES: Polyuria, Polyphagia Eyes: DENIES: Blurred vision, Diplopia Ears, nose, mouth, throat: DENIES: Oral lesions, Ear Pain, Epistaxis Respiratory: DENIES: Cough, Wheezing, Shortness of breath Cardiovascular: COMPLAINS OF: Palpitations (occasional), Lower Extremity Edema , DENIES: Chest pain Gastrointestinal: DENIES: Abdominal pain, Black stools, Bloody stools, Constipation, Diarrhea, Nausea, Vomiting Genitourinary: COMPLAINS OF: Urinary frequency (chronic, s/p prostate sx 2003) , DENIES: Urinary incontinence, Dysuria Musculoskeletal: COMPLAINS OF: Joint Swelling (RLE), DENIES: Joint pain, Muscle aches Integumentary: DENIES: Pruritus, Rash Hematologic/lymphatic: DENIES: Bruising, Lymphadenopathy Neurologic: COMPLAINS OF: Poor Balance (due to RLE pain), DENIES: Headache, Localized weakness Psychiatric: DENIES: Anxiety, Depression (Alana Lamar MD R2) Past Family Social History Past Medical History Hypertension Abdominal aortic aneurysm last seen early 2017, recheck scheduled in late 2018 (currently 6.0cm, patient declining surgery) 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 Peraza, Cardiology: Dr. Wood. Past Surgical History Nasal polypectomy 2001 TURP in 2003. Patient reports a continued mild post void residual of 100 mL. 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 Right ankle fracture requiring open reduction internal fixation in 2013; complicated by post injury reflex sympathetic dystrophy Reported Medications Reported Meds & Active Scripts Active Flomax (Tamsulosin HCl) 0.4 Mg Cap 0.4 Mg PO HS Carvedilol 3.125 Mg Tab 3.125 Mg PO BID Keflex (Cephalexin) 500 Mg Cap 500 Mg PO Q6H Warfarin 5 Mg Tab 5 Mg PO DAILY Hydrochlorothiazide 25 Mg Tab 25 Mg PO DAILY Reported Cetirizine (Cetirizine HCl) 10 Mg Tab 10 Mg DAILY One Daily-Minerals (Multiple Vitamins W/ Minerals) 1 Tab 1 Tab PO DAILY Famotidine 20 Mg Tab 20 Mg PO DAILY PRN Vitamin D3 (Cholecalciferol) 2,000 Unit Cap 2,000 Units PO DAILY Vitamin B-12 (Cyanocobalamin) 1,000 Mcg Tab 1,000 Mcg PO DAILY (Alana Lamar MD R2) Allergies: Coded Allergies: bacitracin (Verified Allergy, Unknown, 08/10/17) neomycin (Verified Allergy, Unknown, 08/10/17) Active Ordered Medications Inpatient Medications Acetaminophen (Tylenol) 650 mg Q4H PRN PO TEMP > 100.4; Start 08/14/17 at 07:15 Bisacodyl (Dulcolax Supp) 10 mg DAILY PRN RECTAL SEVERE CONSITIPATION; Start at 07:15 Lactulose (Lactulose Liq) 30 ml DAILY PRN PO SEVERE CONSITIPATION; Start at 07:15 Magnesium Hydroxide (Milk Of Magnesia Liq) 30 ml Q12H PRN PO Mild constipation ; Start 08/14/17 at 07:15 Naloxone HCl (Narcan Inj) 0.4 mg UNSCH PRN IV PUSH SEE LABEL COMMENTS; Start at 07:15 Ondansetron HCl (Zofran Odt) 4 mg Q6H PRN PO NAUSEA OR VOMITING; Start at 07:15 Pharmacy Profile Note 0 ml @ 0 mls/hr UNSCH OTHER ; Start 08/14/17 at 07:45; Status UNV Senna/Docusate Sodium (Carine-Colace) 1 tab BID PO ; Start 08/14/17 at 09:00 Sennosides (Senokot) 17.2 mg Q12H PRN PO Moderate constipation; Start 08/14/17 at 07:15 Sodium Chloride (NS Flush) 2 ml BID IV FLUSH ; Start 08/14/17 at 09:00 Vancomycin HCl 1000 mg/Sodium Chloride 250 ml @ 250 mls/hr Q12H IV ; Start at 18:00; Status UNV Family History Father: at age 48 of a gunshot accident. 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 He is in no distress. HEAD: top of head with chronic post-surgical scar and one scabbed lesion also appearing chronic EYES: Pupils equal round and reactive. Extraocular motions intact. No scleral icterus. No injection or drainage. ENT: Nose without bleeding. Throat without erythema, tonsillar hypertrophy or exudate. Mucous membranes appear somewhat dry. Uvula midline. Airway patent. NECK: Trachea midline. No JVD or lymphadenopathy. Supple, nontender, no meningeal signs. CARDIOVASCULAR: Regular rate at time of exam without murmurs, gallops, or rubs. RESPIRATORY: Clear to auscultation. Breath sounds equal bilaterally. No wheezes , rales, or rhonchi. GASTROINTESTINAL: Abdomen soft, protuberant but non-tender. nondistended. No hepato-splenomegaly, or palpable masses. No guarding. MUSCULOSKELETAL: No cyanosis. No left calf tenderness. RLE: Patient with loss of sensation along the right toes which is baseline per his report. Otherwise sensation, range of motion, and strength intact throughout the right lower extremity. DP pulses palpable but thready bilaterally unable to be palpated due to edema. 2+ popliteal pulse palpated. No lymphadenopathy appreciated throughout the right lower extremity and groin. NEURO/PSYCH: Afocal. Awake, alert, and oriented x3. Normal speech and judgement. SKIN: Warm and dry. RIGHT LOWER EXTREMITY: Measurements: hyperemic skin surrounding the right ankle and lower calf with area outlined with marking pen. Edematous, erythematous, warm to the touch Not well demarcated at edges Indurated without fluctuance or crepitus Skin is tight/cracked appearing. Punctate 3 mm healing eschar on the anterior singer. No exudates. No foul smell. No necrotic appearing tissue. No skin sloughing. No ulcers. Sensation in overlying skin intact. No loss of motor function distally. Laboratory Laboratory Tests Test 08/14/17 05:50 White Blood Count 6.3 Red Blood Count 3.89 Hemoglobin 12.2 Hematocrit 36.3 Mean Corpuscular Volume 93.5 Mean Corpuscular Hemoglobin 31.3 Mean Corpuscular Hemoglobin Concent 33.4 Red Cell Distribution Width 15.3 Platelet Count 311 Mean Platelet Volume 8.6 Neutrophils (%) (Auto) 71.4 Lymphocytes (%) (Auto) 7.5 Monocytes (%) (Auto) 17.1 Eosinophils (%) (Auto) 3.0 Basophils (%) (Auto) 1.0 Neutrophils # (Auto) 4.5 Lymphocytes # (Auto) 0.5 Monocytes # (Auto) 1.1 Eosinophils # (Auto) 0.2 Basophils # (Auto) 0.1 CBC Comment DIFF FINAL Differential Comment Erythrocyte Sedimentation Rate 40 Prothrombin Time 23.6 Prothromb Time International Ratio 2.3 Activated Partial Thromboplast Time 41.3 Blood Urea Nitrogen 25 Creatinine 0.99 Random Glucose 119 Calcium Level 8.5 Sodium Level 140 Potassium Level 3.7 Chloride Level 104 Carbon Dioxide Level 26.4 Anion Gap 10 Estimat Glomerular Filtration Rate 72 C-Reactive Protein 6.90 (Alana Lamar MD R2) Result Diagram: 08/14/1750 08/14/1750 Caprini VTE Risk Assessment Caprini VTE Risk Assessment: Mod/High Risk (score >= 2) VTE [facility] Contraindication: LE injury/wound Caprini Risk Assessment Model Point Value = 1 Point Value = 2 Point Value = 3 Point Value = 5 Age 41-60 Minor surgery BMI > 25 kg/m2 Swollen legs Varicose veins or History of unexplained or recurrent spontaneous Oral contraceptives or hormone replacement Sepsis (< 1 month) Serious lung disease, including pneumonia (< 1 month) Abnormal pulmonary function Acute myocardial infarction Congestive heart failure (< 1 month) History of inflammatory bowel disease Medical patient at bed rest Age 61-74 Arthroscopic surgery Major open surgery (> 45 min) Laparoscopic surgery (> 45 min) Malignancy Confined to bed (> 72 hours) Immobilizing plaster cast Central venous access Age >= 75 History of VTE Family history of VTE Factor V Leiden Prothrombin [id number] Lupus anticoagulant Anticardiolipin antibodies Elevated serum homocysteine Heparin-induced thrombocytopenia Other congenital or acquired thrombophilia Stroke (< 1 month) Elective arthroplasty Hip, pelvis, or leg fracture Acute spinal cord injury (< 1 month) Prophylaxis Regimen Total Risk Factor Score Risk Level Prophylaxis Regimen 0-1 Low Early ambulation 2 Moderate Order ONE of the following: *Sequential Compression Device (SCD) *Heparin 5000 units SQ BID 3-4 Higher Order ONE of the following medications: *Heparin 5000 units SQ TID *Enoxaparin/Lovenox 40 mg SQ daily (WT < 150 kg, CrCl > 30 mL/min) *Enoxaparin/Lovenox 30 mg SQ daily (WT < 150 kg, CrCl > 10-29 mL/min) *Enoxaparin/Lovenox 30 mg SQ BID (WT < 150 kg, CrCl > 30 mL/min) AND/OR *Sequential Compression Device (SCD) 5 or more Highest Order ONE of the following medications: *Heparin 5000 units SQ TID (Preferred with Epidurals) *Enoxaparin/Lovenox 40 mg SQ daily (WT < 150 kg, CrCl > 30 mL/min) *Enoxaparin/Lovenox 30 mg SQ daily (WT < 150 kg, CrCl > 10-29 mL/min) *Enoxaparin/Lovenox 30 mg SQ BID (WT < 150 kg, CrCl > 30 mL/min) AND *Sequential Compression Device (SCD) (Alana Lamar MD R2) Assessment and Plan Assessment and Plan 87-year-old male readmitted for right lower extremity swelling and edema concerning for worsening cellulitis versus osteomyelitis. Will admit to inpatient at this time for further workup to include bone scan and RLE US. Will discuss patient with inpatient team who will continue management. Disposition: expect 3-5 day inpatient stay for IV antibiotics and further workup , possibly longer if osteomyelitis is confirmed. Patient is aware of this. Code Status Patient is FULL CODE - HOWEVER he requests that if he has rupture of aortic aneurysm he would not want to be resuscitated. We discussed that he would be listed as FULL CODE given that it would be difficult to discern cause. He asserts that if during resuscitation efforts cause was determined to be AAA rupture then he would want resuscitation efforts to be discontinued. Discussed Condition With Dr. Devine (Alana Lamar MD R2) Attending Attestation PATIENT SEEN AND EXAMINED. THIS CASE WAS DISCUSSED WITH THE RESIDENT PHYSICIANS. I HAVE REVIEWED THE RECORD AND AGREE WITH THE ABOVE NOTE AND PLAN OF CARE WAS DISCUSSED. I HAVE AUTHORIZED THE ORDER FOR ADMISSION TO AN IN- PATIENT STATUS. (Barron Sandoval MD) Problem List: (1) Osteomyelitis of ankle or foot, right, acute ICD Codes: M86.171 - Other acute osteomyelitis, right ankle and foot Status: Acute Plan: Patient has had a one-week history of worsening right lower extremity swelling and edema. The chronicity of symptoms is not obviously lead to diagnosis of osteomyelitis, patient does have orthopedic hardware in the ankle which should raise suspicion given patient's symptoms did not improve on p.o. antibiotics at home. In addition to this he has ESR of 40 and CRP of 6.9, both moderately elevated and higher than his admission lab values from 08/10. He is afebrile with normal white count. X-ray right ankle 08/10 showing remote postsurgical changes with lag type screws and apparent talar calcaneal fusion, widening of medial ankle mortise with apparent osteochondral defect involving the medial distal tibia. Patient status post 1 dose of vancomycin in ED. We will continue vancomycin at this time, vancomycin pharmacy consult ordered Pending studies: Ultrasound right lower extremity Bone scan (2) Cellulitis of right lower extremity ICD Codes: L03.115 - Cellulitis of right lower limb Status: Acute Plan: As above (3) AAA (abdominal aortic aneurysm) ICD Codes: I71.4 - Abdominal aortic aneurysm, without rupture Status: Chronic Plan: Chronic AAA measuring up to 6 cm per his report. He is being followed by Dr. Peraza and states he has regular follow-up. Will continue home medications for hypertension control (hydrochlorothiazide and carvedilol). Blood pressure goal is less than 130/90. (4) Hypertension ICD Codes: I10 - Essential (primary) hypertension Status: Chronic Plan: Chronic, stable, mild elevation of blood pressure on admission but he has not had home medications yet. Will continue HCTZ 25 mg daily and carvedilol 3.125 mg twice daily. Would likely add Vasotec 1.25 mg every 6 hours as needed for systolic blood pressure greater than 180 (5) Atrial fibrillation ICD Codes: I48.91 - Unspecified atrial fibrillation Status: Chronic Plan: Patient was history of chronic atrial fibrillation currently anticoagulated with Coumadin. Currently asymptomatic but he states he has intermittent palpitations at home. INR is pending on admission, previously at goal and he is currently rate controlled, did not order telemetry but should monitor any symptoms and order as needed Continue home dose Coumadin 5 mg daily (6) GERD (gastroesophageal reflux disease) ICD Codes: K21.9 - Gastro-esophageal reflux disease without esophagitis Status: Chronic Plan: Chronic, stable, will continue home dose famotidine 20 mg as needed for indigestion (7) BPH (benign prostatic hyperplasia) ICD Codes: N40.0 - Benign prostatic hyperplasia without lower urinary tract symptoms Status: Chronic Plan: Patient had TURP procedure in 2003 and has intermittent urinary frequency but currently this is reportedly improved. Will continue home dose Flomax 0.4 mg hs, monitor I/Os. (8) Constipation ICD Codes: K59.00 - Constipation, unspecified Status: Chronic Plan: Patient states he has had pretty significant constipation in the past. He is currently having regular bowel movements. He uses [id number] laxatives, will continue constipation protocol with caution to hold for loose stools (9) Nutrition, metabolism, and development symptoms ICD Codes: R63.8 - Other symptoms and signs concerning food and fluid intake Status: Acute Plan: Fluids: tolerating PO Electrolytes: monitor and replete as needed Nutrition: heart-healthy diet DVT Prophylaxis: Early ambulation. Coumadin 5mg daily for afib, goal INR 2-3. SCD LLE only due to RLE infection GI Prophylaxis: famotidine home dose PRN PRN anti-HTN: Vasotec 1.25mg PO PRN SBP > 180/ and/or DBP > 100 (Alana Lamar MD R2) Physician Certification 2 Midnight Certification Type: Admission for Inpatient Services Order for Inpatient Services The services are ordered in accordance with Medicare regulations or non- Medicare payer requirements, as applicable. In the case of services not specified as inpatient-only, they are appropriately provided as inpatient services in accordance with the 2-midnight benchmark. Estimated LOS (days): 3 days is the estimated time the patient will need to remain in the hospital, assuming treatment plan goals are met and no additional complications. Post-Hospital Plan: Not yet determined (Alana Lamar MD R2) Problem Qualifiers (1) AAA (abdominal aortic aneurysm): Qualified Codes: I71.4 - Abdominal aortic aneurysm, without rupture (2) Hypertension: Qualified Codes: I10 - Essential (primary) hypertension (3) Atrial fibrillation: Qualified Codes: I48.2 - Chronic atrial fibrillation (4) GERD (gastroesophageal reflux disease): Qualified Codes: K21.9 - Gastro-esophageal reflux disease without esophagitis (5) BPH (benign prostatic hyperplasia): Qualified Codes: N40.1 - Benign prostatic hyperplasia with lower urinary tract symptoms; R35.0 - Frequency of micturition Alana Lamar MD R2 Aug 14, 2017 07:11 Barron Sandoval MD Aug 14, 2017 16:39
[2017-08-14] MEDS ORDERED: ONDANSETRON ODT 4 MG TAB PO PRN (07:15)
[2017-08-14] MEDS ORDERED: SENNOSIDES 8.6 MG TAB PO PRN (07:15)
[2017-08-14] MEDS ORDERED: BISACODYL 10 MG SUPP RECTAL PRN (07:15)
[2017-08-14] MEDS ORDERED: ACETAMINOPHEN 325 MG TAB PO PRN (07:15)
[2017-08-14] MEDS ORDERED: LACTULOSE SYRUP 20 GM/30 ML CUP PO PRN (07:15)
[2017-08-14] MEDS ORDERED: SODIUM CHLORIDE 0.9% FLUSH 10 ML FLUSH IV FLUSH PRN (07:15)
[2017-08-14] MEDS ORDERED: MAGNESIUM HYDROXIDE SUSP 30 ML CUP PO PRN (07:15)
[2017-08-14] MEDS ORDERED: NALOXONE HCL 0.4 MG/ML AMP IV PUSH PRN (07:15)
[2017-08-14] MEDS ORDERED: Vancomycin Consult Pharmacy 1 EA OTHER SCH (07:45)
[2017-08-14] MEDS ORDERED: FAMOTIDINE 20 MG TAB PO PRN (08:00)
[2017-08-14] MEDS ORDERED: ENALAPRILAT 1.25 MG/ML VIAL IV PUSH PRN (08:30)
[2017-08-14] MEDS: CETIRIZINE HCL 10 MG TAB PO SCH (09:00)
[2017-08-14] MEDS: CARVEDILOL 3.125 MG TAB PO SCH ×3 (09:00→20:39)
[2017-08-14] MEDS: DOCUSATE SODIUM 50 MG/SENNA 8.6 MG TAB PO SCH ×2 (09:00→20:31)
[2017-08-14] MEDS: HYDROCHLOROTHIAZIDE 25 MG TAB PO SCH (09:00)
--- NOTE | 2017-08-14 09:19 | RADRPT ---
EXAM DATE: 08/14/2017 8:37 AM EDT AGE/SEX: 87 years / Male INDICATIONS: Right leg swelling. CLINICAL DATA: This is the patient's initial encounter. Patient reports that signs and symptoms have been present for 1 month and indicates a pain score of 3/10. MEDICAL/SURGICAL HISTORY: Hypercholesterolemia. HTN. AFib. Palpitations. Sleep apnea. Spinal s tenosis. Skin cancer. Anticoagulant therapy, Coumadin. Appendectomy. TURP. Right ankle surgery. Sharath yp removed from nose. Skin cancer removal. Blood transfusions. COMPARISON: No prior exams available for comparison. TECHNIQUE: Venous ultrasound of both lower extremities was performed from the inguinal ligament to t he proximal calf. Real-time, color Doppler and spectral tracing, compression and augmentation techni ques were used. FINDINGS: Normal compression of the deep venous system from the inguinal region to the proximal calf . No echogenic clot is seen. Normal response of the venous system to augmentation and respiration. CONCLUSION: 1. No evidence of deep venous thrombosis within the right lower extremity. Electronically signed by: Jesse Garcia MD 08/14/2017 9:18 AM EDT
[2017-08-14 10:00] VITALS: BP 178/92; PULSE 82; RESP 18; TEMP 97.8; O2SAT 97
[2017-08-14] MEDS: SODIUM CHLORIDE 0.9% FLUSH 10 ML FLUSH IV FLUSH SCH ×2 (10:15→20:40)
[2017-08-14] MEDS ORDERED: GADODIAMIDE PF 287 MG/ML 20 ML VIAL (for RAD MRI) IVCONTRAST ONE (12:13)
[2017-08-14 12:30] VITALS: BP 178/93; PULSE 73; RESP 19; TEMP 97.5; O2SAT 97
--- NOTE | 2017-08-14 13:16 | RADRPT ---
EXAM DATE: 08/14/2017 12:31 PM EDT AGE/SEX: 87 years / Male INDICATIONS: Right lower leg redness and swelling for 5 days. CLINICAL DATA: This is the patient's initial encounter. Patient reports that signs and symptoms have been present for 4 - 6 days and indicates a pain score of 5/10. MEDICAL/SURGICAL HISTORY: Hypertension. Carcinoma, skin cancer. Afib. Appendectomy. Prostate ctomy. Right ankle hardware. Nasal polyps removed. COMPARISON: . TECHNIQUE: Multiplanar, multisequence MRI examination was performed without and with 19 ml Omniscan (gadodiamide) contrast as single exam dose. FINDINGS: There is diffuse subcutaneous tissue edema throughout the visualized leg. No evidence of discrete flu id collection to suggest abscess. No evidence of intramuscular collection or abscess. No abnormal enh ancement. The bony elements are benign with hardware present in in the medial malleolus at the ankle and subchondral cyst formation involving the tibial plateau at the knee. CONCLUSION: Nonspecific cellulitis Electronically signed by: Monster Bautista MD 08/14/2017 1:14 PM EDT
[2017-08-14] MEDS ORDERED: CARVEDILOL 3.125 MG TAB PO PRN (14:15)
[2017-08-14 16:00] VITALS: BP 157/79; PULSE 70; RESP 17; TEMP 97.7; O2SAT 92
[2017-08-14] MEDS ORDERED: WARFARIN SOD 5 MG TAB PO SCH (16:00)
[2017-08-14] MEDS ORDERED: VANCOMYCIN INJ 1,000 MG in SODIUM CHLOR 0.9% 250 ML INJ 250 ML IV SCH (18:00)
[2017-08-14 20:00] VITALS: BP 149/72; PULSE 60; RESP 20; TEMP 97.8; O2SAT 95
[2017-08-14] MEDS ORDERED: TAMSULOSIN HCL 0.4 MG CAP PO SCH (21:00)
[2017-08-14 23:50] VITALS: BP 143/77; PULSE 84; RESP 20; TEMP 98; O2SAT 95
[2017-08-15] MEDS ORDERED: VANCOMYCIN INJ 1,250 MG in SODIUM CHLOR 0.9% 250 ML INJ 250 ML IV SCH (02:00)
[2017-08-15 08:00] VITALS: BP 155/71; PULSE 68; RESP 18; TEMP 97.3; O2SAT 97
[2017-08-15 08:29] LABS: AUTOMATED NEUTROPHIL # 3.8 TH/MM3 (1.8-7.7); BASOPHIL # 0.1 TH/MM3 (0-0.2); BASOPHIL % 1.1 % (0.0-2.0); EOSINOPHIL # 0.1 TH/MM3 (0-0.4); EOSINOPHIL % 2.7 % (0.0-4.0); HEMATOCRIT 37.1 % (39.0-51.0); HEMOGLOBIN 12.4 GM/DL (13.0-17.0); LYMPH % 8.1 % (9.0-44.0); LYMPHOCYTE # 0.4 TH/MM3 (1.0-4.8); MEAN CELL VOLUME 93.9 FL (80.0-100.0); MEAN CORPUSCULAR HEMOGLOBIN 31.4 PG (27.0-34.0); MEAN CORPUSCULAR HGB CONC 33.5 % (32.0-36.0); MEAN PLATELET VOLUME 8.1 FL (7.0-11.0); NEUT % 70.1 % (16.0-70.0); PLATELET COUNT 357 TH/MM3 (150-450); RED BLOOD COUNT 3.96 MIL/MM3 (4.50-5.90); RED CELL DISTRIBUTION WIDTH 15.1 % (11.6-17.2); WHITE BLOOD COUNT 5.5 TH/MM3 (4.0-11.0)
[2017-08-15 08:52] LABS: ALBUMIN 3.6 GM/DL (3.4-5.0); AST (GOT) 27 U/L (15-37); BLOOD UREA NITROGEN 16 MG/DL (7-18); CALCIUM 8.9 MG/DL (8.5-10.1); CHLORIDE 100 MEQ/L (98-107); CREATININE 0.92 MG/DL (0.60-1.30); GLOMERULAR FILTRATION RATE 78 ML/MIN (>89); GLUCOSE,RANDOM 85 MG/DL (74-106); SODIUM (NA) 137 MEQ/L (136-145)
[2017-08-15] MEDS: CETIRIZINE HCL 10 MG TAB PO SCH (08:53)
[2017-08-15] MEDS: DOCUSATE SODIUM 50 MG/SENNA 8.6 MG TAB PO SCH (08:53)
[2017-08-15 08:54] LABS: ALT (GPT) 29 U/L (12-78)
[2017-08-15] MEDS: CARVEDILOL 3.125 MG TAB PO SCH (08:54)
[2017-08-15] MEDS ORDERED: BACT800T5 PO (08:54)
[2017-08-15] MEDS: HYDROCHLOROTHIAZIDE 25 MG TAB PO SCH (08:54)
--- NOTE | 2017-08-15 08:55 | HHI.DCPOC ---
Discharge Care Plan Diagnosis: (1) Cellulitis of right lower extremity Goals to Promote Your Health * To prevent worsening of your condition and complications * To maintain your health at the optimal level Directions to Meet Your Goals Take your medications as prescribed Follow your dietary instruction Follow activity as directed Keep your appointments as scheduled Take your immunizations and boosters as scheduled If your symptoms worsen call your PCP, if no PCP go to Urgent Care Center or Emergency Room Smoking is Dangerous to Your Health. Avoid second hand smoke Call the 24-hour hour crisis hotline for domestic abuse at Betsy Cobos MD R1 Aug 15, 2017 08:55
[2017-08-15 08:57] LABS: ALKALINE PHOSPHATASE 123 U/L (45-117); TOTAL BILIRUBIN ADULT 1.5 MG/DL (0.2-1.0); TOTAL PROTEIN 7.5 GM/DL (6.4-8.2)
--- NOTE | 2017-08-15 10:59 | HHI.FPPN ---
Subjective Remarks Patient states that the swelling in his right ankle is improved today. States that he decided to come in because he was anxious and had felt increased swelling in his ankle. It appears that there is redness and swelling, patient states that he feels like it may be in his ligament. No recent trauma or injury to exacerbate swelling or redness. No other problems or issues. Patient wants to go home today. (Betsy Cobos MD R1) Objective Vitals Vital Signs Date Time Temp Pulse Resp B/P (MAP) Pulse Ox O2 Delivery O2 Flow Rate FiO2 08/15/17 08:00 97.3 68 18 155/71 (99) 97 08/14/17 23:50 98.0 84 20 143/77 (99) 95 08/14/17 20:00 97.8 60 20 149/72 (97) 95 08/14/17 16:00 97.7 70 17 157/79 (105) 92 08/14/17 12:30 97.5 73 19 178/93 (121) 97 08/14/17 11:58 I/O 08/14/17 08/14/17 08/14/17 08/15/17 08/15/17 08/15/17 06:59 14:59 22:59 06:59 14:59 22:59 Intake Total 240 ml 742.5 ml Output Total 1000 ml Balance -760 ml 742.5 ml Intake Oral 240 ml 480 ml IV Total 262.5 ml Output Urine Total 1000 ml # Voids 2 2 2 # Bowel Movements 0 (Betsy Cobos MD R1) Result Diagram: 08/15/17 0753 08/15/17 0753 Objective Remarks O. CONSTITUTIONAL/GEN: in NAD. EYES: conjunctiva normal, PERRLA, EOMI. ENT: Mouth and pharynx normal. LUNGS: clear A-P, respiratory effort is normal. CARDIOVASCULAR: RR without murmur or gallop. No significant edema. GI/ABD: soft without masses, without organomegaly. NEURO: No focal deficits. Gait is normal SKIN: color normal, no rashes noted. MUSC: Mild, warmth, and swelling of right lower extremity >L. Edema is pitting bilaterally, however worse on the right than the left. Range of motion normal. PSYCH/MENTAL STATUS: Alert and conversant. (Betsy Cobos MD R1) A/P Assessment and Plan 87-year-old male readmitted for right lower extremity swelling and edema concerning for worsening cellulitis. Imaging shows only cellulitis, no concern for osteomyelitis. Patient is already noted improvement today. Will discharge home on oral Bactrim. To avoid interaction with Coumadin, advise taking half usual dose of Coumadin (2.5 mg daily) while finishing course of Bactrim (7 day course). Patient also needs to elevate leg 30 min BID. Discharge Planning Discharge today on oral Bactrim (Betsy Cobos MD R1) Attending Attestation Patient seen and examined. Case reviewed and discussed with the resident team. Agree with plan of care as discussed with me and documented in the resident note. (Barron Sandoval MD) Problem List: (1) Cellulitis of right lower extremity ICD Codes: L03.115 - Cellulitis of right lower limb Status: Acute Plan: Ultrasound right lower extremity and MRI of right ankle negative for DVT and osteomyelitis On Day 2 of Vanc (2) AAA (abdominal aortic aneurysm) ICD Codes: I71.4 - Abdominal aortic aneurysm, without rupture Status: Chronic Plan: Chronic AAA measuring up to 6 cm per his report. He is being followed by Dr. Peraza. Continue home medications for hypertension control (hydrochlorothiazide and carvedilol). Blood pressure goal is less than 130/90. (3) Hypertension ICD Codes: I10 - Essential (primary) hypertension Status: Chronic Plan: Continue HCTZ 25 mg daily and carvedilol 3.125 mg twice daily. (4) Atrial fibrillation ICD Codes: I48.91 - Unspecified atrial fibrillation Status: Chronic Plan: Continue home dose Coumadin 5 mg daily (5) GERD (gastroesophageal reflux disease) ICD Codes: K21.9 - Gastro-esophageal reflux disease without esophagitis Status: Chronic Plan: Chronic, stable, will continue home dose famotidine 20 mg as needed for indigestion (6) BPH (benign prostatic hyperplasia) ICD Codes: N40.0 - Benign prostatic hyperplasia without lower urinary tract symptoms Status: Chronic Plan: Continue home dose Flomax 0.4 mg hs, monitor I/Os. (Betsy Cobos MD R1) Problem Qualifiers (1) AAA (abdominal aortic aneurysm): Qualified Codes: I71.4 - Abdominal aortic aneurysm, without rupture (2) Hypertension: Qualified Codes: I10 - Essential (primary) hypertension (3) Atrial fibrillation: Qualified Codes: I48.2 - Chronic atrial fibrillation (4) GERD (gastroesophageal reflux disease): Qualified Codes: K21.9 - Gastro-esophageal reflux disease without esophagitis (5) BPH (benign prostatic hyperplasia): Qualified Codes: N40.1 - Benign prostatic hyperplasia with lower urinary tract symptoms; R35.0 - Frequency of micturition Betsy Cobos MD R1 Aug 15, 2017 10:59 Barron Sandoval MD Aug 16, 2017 06:25
--- NOTE | 2017-08-16 20:31 | RADRPT ---
EXAM DATE: 08/14/2017 3:02 PM EDT AGE/SEX: 87 years / Male INDICATIONS: Right ankle pain and swelling. CLINICAL DATA: This is the patient's initial encounter. Patient reports that signs and symptoms have been present for 4 - 6 days and indicates a pain score of 4/10. MEDICAL/SURGICAL HISTORY: Hypertension. Right leg cellulitis. Appendectomy. [place] [facility] [place] W & W/O CONTRAST, 08/14/2017. . TECHNIQUE: Three-phase bone scanning of the Right ankle was performed. No correlative bone scan available for comparison. DOSE: 31.2 mCi Tc99m MDP IV FINDINGS: There is slight asymmetric increased flow to the right lower leg and ankle as well as increased blood pooling but no significant bony uptake to suggest osteomyelitis. The finds are consistent with cellu litis of the right lower leg. CONCLUSION: 1. Findings are consistent with cellulitis without definite osteomyelitis of the right lower leg and ankle. Electronically signed by: Jesse Garcia MD 08/16/2017 8:29 PM EDT
[2017-08-17] MEDS ORDERED: PHARMACY ORDERED LAB ONE (01:45)
== END 2017-08-15 13:09 | disposition home or self-care (01) | DRG 603 ==
LOC: NEPC 05:20 → NEDA 06:53 → N07A 12:37
PROVIDERS: ADMIT Family Medicine; ATTEND Family Medicine
DX: L03.115 Cellulitis of right lower limb (principal); G62.0 Drug-induced polyneuropathy; I48.2 Chronic atrial fibrillation; I10 Essential (primary) hypertension; G90.50 Complex regional pain syndrome I, unspecified; I71.4 Abdominal aortic aneurysm, without rupture; H91.91 Unspecified hearing loss, right ear; R60.9 Edema, unspecified; K59.00 Constipation, unspecified; M43.16 Spondylolisthesis, lumbar region; K21.9 Gastro-esophageal reflux disease without esophagitis; R35.0 Frequency of micturition; E78.00 Pure hypercholesterolemia, unspecified; N40.1 Benign prostatic hyperplasia with lower urinary tract symptoms; M79.89 Other specified soft tissue disorders; Z79.01 Long term (current) use of anticoagulants; Z85.828 Personal history of other malignant neoplasm of skin; Z92.3 Personal history of irradiation; Z87.891 Personal history of nicotine dependence; Z79.899 Other long term (current) drug therapy; T46.6X5A Adverse effect of antihyperlipidemic and antiarteriosclerotic drugs, initial encounter; R11.0 Nausea; M21.40 Flat foot [pes planus] (acquired), unspecified foot
CPT/HCPCS: 73720; 78315; 80048; 80053; 85025; 85610; 85652; 85730; 86140; 87040; 93971; A9503; A9579; J3370; J7050